=== PATIENT | female | born 1965 | race African-American/Black ===

== ENCOUNTER 2017-04-30 09:12 | Outpatient (CLI) | payer OTHER | END 2017-04-30 21:09 | disposition home or self-care (01) | LOC: US 09:12 | DX: D47.3 Essential (hemorrhagic) thrombocythemia (principal); R10.84 Generalized abdominal pain; R16.1 Splenomegaly, not elsewhere classified ==

== ENCOUNTER 2018-08-08 10:26 | Outpatient (CLI) | payer OTHER | END 2018-08-08 23:10 | disposition home or self-care (01) | LOC: MAMMO 10:26 | DX: D47.3 Essential (hemorrhagic) thrombocythemia (principal); Z12.31 Encounter for screening mammogram for malignant neoplasm of breast ==

== ENCOUNTER 2018-10-14 09:12 | Outpatient (CLI) | payer OTHER | END 2018-10-14 22:46 | disposition home or self-care (01) | LOC: MAMMO 09:12 | DX: R92.1 Mammographic calcification found on diagnostic imaging of breast (principal) ==

== ENCOUNTER 2018-10-25 09:07 | Outpatient (CLI) | payer OTHER | END 2018-10-25 19:08 | disposition home or self-care (01) | LOC: US 09:07 | DX: K76.0 Fatty (change of) liver, not elsewhere classified (principal); R74.8 Abnormal levels of other serum enzymes ==

== ENCOUNTER 2018-12-14 09:26 | Outpatient (CLI) | payer OTHER ==
[2018-12-14 09:39] LABS: PLATELET COUNT 532 K/uL (152-353)
[2018-12-14 09:48] LABS: POTASSIUM 4.3 mmol/L (3.6-5.2)
== END 2018-12-14 23:30 | disposition home or self-care (01) ==
LOC: LABW 09:26
PROVIDERS: Internal Medicine Medical Oncology
DX: D64.9 Anemia, unspecified (principal); D47.3 Essential (hemorrhagic) thrombocythemia
CPT/HCPCS: 36415; 80053; 85027

== ENCOUNTER 2019-02-18 16:50 | Outpatient (CLI) | payer OTHER ==
[2019-02-18 17:17] LABS: PLATELET COUNT 406 K/uL (152-353)
[2019-02-18 17:24] LABS: POTASSIUM 4.1 mmol/L (3.6-5.2)
== END 2019-02-18 22:20 | disposition home or self-care (01) ==
LOC: LABW 16:50
PROVIDERS: Internal Medicine Medical Oncology
DX: D47.3 Essential (hemorrhagic) thrombocythemia (principal); D64.9 Anemia, unspecified
CPT/HCPCS: 36415; 80053; 85027

== ENCOUNTER 2019-04-01 11:21 | Outpatient (CLI) | payer OTHER | END 2019-04-01 20:10 | disposition home or self-care (01) | LOC: US 11:21 | DX: D47.3 Essential (hemorrhagic) thrombocythemia (principal); D64.9 Anemia, unspecified; R92.8 Other abnormal and inconclusive findings on diagnostic imaging of breast ==

== ENCOUNTER 2019-05-22 09:31 | Outpatient (CLI) | payer OTHER | END 2019-05-22 19:11 | disposition home or self-care (01) | LOC: US 09:31 | DX: K76.0 Fatty (change of) liver, not elsewhere classified (principal); R74.8 Abnormal levels of other serum enzymes; R14.0 Abdominal distension (gaseous) ==

== ENCOUNTER 2019-11-27 08:19 | Outpatient (CLI) | payer OTHER | END 2019-11-27 20:34 | disposition home or self-care (01) | LOC: RAD 08:19 | DX: M81.0 Age-related osteoporosis without current pathological fracture (principal); N60.81 Other benign mammary dysplasias of right breast; D64.89 Other specified anemias; D47.3 Essential (hemorrhagic) thrombocythemia ==

== ENCOUNTER 2020-05-11 08:38 | Outpatient (CLI) | payer OTHER | END 2020-05-11 23:07 | disposition home or self-care (01) | LOC: MAMMO 08:38 | PROVIDERS: ATTEND Nurse Practitioner Adult Health | DX: N60.91 Unspecified benign mammary dysplasia of right breast (principal); E55.9 Vitamin D deficiency, unspecified; M81.0 Age-related osteoporosis without current pathological fracture; D64.9 Anemia, unspecified; D47.3 Essential (hemorrhagic) thrombocythemia; N64.59 Other signs and symptoms in breast | CPT/HCPCS: G0279 ==

== ENCOUNTER 2020-05-18 08:06 | Outpatient (CLI) | payer OTHER ==
[2020-05-18 08:26] LABS: PLATELET COUNT 512 K/uL (152-353)
[2020-05-18 09:02] LABS: POTASSIUM 4.7 mmol/L (3.6-5.2)
== END 2020-05-18 21:02 | disposition home or self-care (01) ==
LOC: LABW 08:06
PROVIDERS: ATTEND Nurse Practitioner Adult Health
DX: N60.91 Unspecified benign mammary dysplasia of right breast (principal); D47.3 Essential (hemorrhagic) thrombocythemia; D64.9 Anemia, unspecified; M81.0 Age-related osteoporosis without current pathological fracture; E55.9 Vitamin D deficiency, unspecified
CPT/HCPCS: 36415; 80053; 82306; 85027

== ENCOUNTER 2021-01-27 09:08 | Outpatient (CLI) | payer OTHER | END 2021-01-27 20:01 | disposition home or self-care (01) | LOC: US 09:08 | PROVIDERS: ATTEND Internal Medicine Medical Oncology | DX: M79.605 Pain in left leg (principal); N60.91 Unspecified benign mammary dysplasia of right breast; D47.3 Essential (hemorrhagic) thrombocythemia; D64.9 Anemia, unspecified; M81.0 Age-related osteoporosis without current pathological fracture; E55.9 Vitamin D deficiency, unspecified ==

== ENCOUNTER 2021-05-17 14:40 | Outpatient (CLI) | payer OTHER | END 2021-05-17 19:03 | disposition home or self-care (01) | LOC: MAMMO 14:40 | PROVIDERS: ATTEND Internal Medicine Medical Oncology | DX: N60.91 Unspecified benign mammary dysplasia of right breast (principal); D47.3 Essential (hemorrhagic) thrombocythemia; D64.89 Other specified anemias; M81.0 Age-related osteoporosis without current pathological fracture; E55.9 Vitamin D deficiency, unspecified; M79.605 Pain in left leg; N64.59 Other signs and symptoms in breast | CPT/HCPCS: G0279 ==

== ENCOUNTER 2021-12-27 15:32 | Outpatient (CLI) | payer OTHER | END 2021-12-27 19:25 | disposition home or self-care (01) | LOC: RAD 15:32 → CT 16:00 → RAD 19:25 | PROVIDERS: ATTEND Nurse Practitioner Family | DX: N60.91 Unspecified benign mammary dysplasia of right breast (principal); D47.3 Essential (hemorrhagic) thrombocythemia; D64.89 Other specified anemias; M81.0 Age-related osteoporosis without current pathological fracture; E55.9 Vitamin D deficiency, unspecified; M79.605 Pain in left leg; R10.2 Pelvic and perineal pain ==

== ENCOUNTER 2022-05-19 09:12 | Outpatient (CLI) | payer OTHER | END 2022-05-19 21:19 | disposition home or self-care (01) | LOC: MAMMO 09:12 | PROVIDERS: ATTEND Nurse Practitioner Family | DX: Z12.31 Encounter for screening mammogram for malignant neoplasm of breast (principal) ==

== ENCOUNTER 2023-05-22 08:23 | Outpatient (CLI) | payer OTHER | END 2023-05-22 19:22 | disposition home or self-care (01) | LOC: MAMMO 08:23 | PROVIDERS: ATTEND Internal Medicine | DX: Z12.31 Encounter for screening mammogram for malignant neoplasm of breast (principal) ==